=== PATIENT | male | born 1945 | race Caucasian/White ===

== ENCOUNTER → 2017-02-16 | Outpatient (CLI) | payer MEDICARE ==
[~2017-02-16] MED LIST: /TAMS4CA PO; /WARF25TA PO; /WARF5TA OR; ACET65TA OR; FISHCAP PO; FLAG500T PO; FLAXOIL PO; KEFL500C PO; LEVO500T PO; MULTLIQ7 PO; MUPI2OI; NORC5TAB PO; NORCOTAB PO; PERC5TAB8 OR; PERC7.5T8 OR; PERCOCET PO; PRAV40TA OR; PROZAC PO; TERA10CA OR; TERAZOSIN PO; TRAM50TA2 OR; VITAMIN C PO
--- NOTE | 2017-02-16 13:54 | REP ---
LEFT KNEE, FIVE VIEWS: HISTORY: Pain. There is narrowing of the joint spaces. Osteophytes are present on the femur, tibia, and patella. IMPRESSION: Degenerative change as described above. Signed by Jack Wagner MD 02/16/2017 02:05 P
== END ==
LOC: M WUC 13:12
PROVIDERS: ATTEND Nurse Practitioner Adult Health
DX: M25.562 Pain in left knee (principal)

== ENCOUNTER → 2017-04-06 | Outpatient (REF) | payer MEDICARE | LOC: M LAB REF 16:42 | PROVIDERS: ATTEND Nurse Practitioner Adult Health | DX: E21.0 Primary hyperparathyroidism (principal) ==

== ENCOUNTER → 2017-04-18 | Outpatient (REF) | payer MEDICARE | LOC: M LAB REF 16:50 | PROVIDERS: ATTEND Nurse Practitioner Adult Health | DX: R31.29 Other microscopic hematuria (principal) ==

== ENCOUNTER 2017-07-21 18:54 | Emergency (ER) | payer MEDICARE ==
[~2017-07-21] VITALS: Ht 172.7 cm; Wt 86.8 kg
[2017-07-21] MEDS ORDERED: ASPI1TAB PO (19:10)
[2017-07-21] MEDS ORDERED: NAPR500T PO (21:49)
[2017-07-21] MEDS ORDERED: NAPROXEN 250 MG TAB PO ONE (22:00)
[2017-07-21 22:06] VITALS: BP 134/72
--- NOTE | 2017-07-21 22:24 | REP ---
RIGHT SHOULDER, THREE VIEWS: HISTORY: Trauma. There is no acute fracture or dislocation. Osteophytes are present at the acromioclavicular joint. Calcification is present superior to the acromioclavicular joint. This represents ligamentous or tendon calcification. IMPRESSION: Degenerative change as described above. Signed by Jack Wagner MD 07/22/2017 08:23 A
== END 2017-07-21 22:00 | disposition home or self-care (01) ==
LOC: M ED 18:54
DX: S43.51XA Sprain of right acromioclavicular joint, initial encounter (principal); W19.XXXA Unspecified fall, initial encounter; Y92.099 Unspecified place in other non-institutional residence as the place of occurrence of the external cause; Y93.9 Activity, unspecified; Y99.9 Unspecified external cause status; I51.9 Heart disease, unspecified; Z87.891 Personal history of nicotine dependence; Z82.49 Family history of ischemic heart disease and other diseases of the circulatory system; Z79.82 Long term (current) use of aspirin; Z79.899 Other long term (current) drug therapy

== ENCOUNTER → 2018-11-09 | Outpatient (REF) | payer MEDICARE ==
[~2018-11-09] MED LIST changes: +ASPI1TAB PO; +NAPR-49 PO
[2018-11-09 14:09] LABS: INR 1.11; PROTHROMBIN TIME 14.5 SECONDS (12.1-14.4)
== END ==
LOC: M LAB REF 13:17
PROVIDERS: ATTEND Nurse Practitioner Adult Health
DX: I71.4 Abdominal aortic aneurysm, without rupture (principal); Z01.818 Encounter for other preprocedural examination; D69.8 Other specified hemorrhagic conditions

== ENCOUNTER → 2019-01-02 | Outpatient (REF) | payer MEDICARE ==
[~2019-01-02] MED LIST changes: -NAPR-49 PO; +NAPR-50 PO
[2019-01-02 13:30] LABS: INR 1.03; PROTHROMBIN TIME 13.6 SECONDS (12.1-14.4)
[2019-01-02 13:31] LABS: PARTIAL THROMBOPLASTIN TIME 29.7 SECONDS (25.4-37.6)
== END ==
LOC: M LAB REF 12:35
PROVIDERS: ATTEND Nurse Practitioner Adult Health
DX: Z01.818 Encounter for other preprocedural examination (principal)

== ENCOUNTER → 2019-08-09 | Outpatient (CLI) | payer MEDICARE ==
[~2019-08-09] MED LIST changes: -/TAMS4CA PO; -/WARF25TA PO; -/WARF5TA OR; -ASPI1TAB PO; +ASPI81TA26 PO; +COUM1TAB17 OR; +COUM1TAB18 PO; +FLOM0.4C39 PO; +MUPI1OIN2; -MUPI2OI; -NAPR-50 PO; +NAPR-837 PO; +OXYC1TAB23 PO; -PERCOCET PO
[2019-08-09 15:58] LABS: CREATININE FOR GFR 1.31 MG/DL (0.70-1.30); GLOMERULAR FILTRATION RATE 56.8 (>42)
== END ==
LOC: M LAB 14:47
PROVIDERS: ATTEND Surgery Vascular Surgery
DX: I71.4 Abdominal aortic aneurysm, without rupture (principal)

== ENCOUNTER → 2019-12-30 | Outpatient (CLI) | payer MEDICARE ==
[2019-12-30 20:38] LABS: BLOOD UREA NITROGEN 19 MG/DL (7-18); CREATININE FOR GFR 1.11 MG/DL (0.70-1.30); GLOMERULAR FILTRATION RATE > 60.0 (>42)
== END ==
LOC: M WUC 15:52
PROVIDERS: ATTEND Surgery Vascular Surgery
DX: I71.4 Abdominal aortic aneurysm, without rupture (principal)

== ENCOUNTER → 2020-10-02 | Outpatient (REF) | payer MEDICARE ==
[2020-10-02 18:18] LABS: HEPATITIS A ANTIBODY IGM NEGATIVE (NEGATIVE); HEPATITIS B CORE ANTIBODY IGM NEGATIVE (NEGATIVE); HEPATITIS B SURFACE ANTIGEN NEGATIVE (NEGATIVE); HEPATITIS C VIRUS ABY INDEX 0.1 INDEX (<0.8)
== END ==
LOC: M LAB REF 16:14
PROVIDERS: ATTEND Nurse Practitioner Adult Health
DX: R94.5 Abnormal results of liver function studies (principal)

== ENCOUNTER → 2021-02-26 | Outpatient (REF) | payer MEDICARE | LOC: M LAB REF 12:18 | PROVIDERS: ATTEND Nurse Practitioner Adult Health | DX: R30.0 Dysuria (principal) ==

== ENCOUNTER → 2021-03-23 | Outpatient (CLI) | payer MEDICARE ==
--- NOTE | 2021-03-23 13:54 | REP ---
INDICATION: CHRONIC KIDNEY FAILURE, ELEVATED LFT. COMPARISON: 03/22/2016. TECHNIQUE: Real-time sonographic evaluation of the kidneys is performed. FINDINGS: Renal cortical echogenicity pattern is normal bilaterally and contours are smooth. There is no evidence of hydronephrosis, cyst, mass, or calculus in either kidney. The right kidney measures 10.6 x 4.9 x 5.3 cm. Left renal dimensions are 9.7 x 4.9 x 5.6 cm. There is debris in the urinary bladder. Ureteral jets are visualized in the urinary bladder bilaterally with Doppler color evaluation. Incidental note is made of a known abdominal aortic aneurysm containing a stent. IMPRESSION: Negative renal ultrasound. <Electronically signed by Shay Davenport > 03/23/21 [id number]
== END ==
LOC: M RAD 12:54
PROVIDERS: ATTEND Nurse Practitioner Adult Health
DX: N18.31 Chronic kidney disease, stage 3a (principal)

== ENCOUNTER → 2021-06-23 | Outpatient (CLI) | payer MEDICARE ==
[2021-06-23 07:19] LABS: BLOOD UREA NITROGEN 22 MG/DL (7-18); CREATININE FOR GFR 0.98 MG/DL (0.70-1.30); GLOMERULAR FILTRATION RATE > 60.0 (>42)
== END ==
LOC: M LAB 06:18
PROVIDERS: ATTEND Surgery Vascular Surgery
DX: D69.8 Other specified hemorrhagic conditions (principal)

== ENCOUNTER → 2021-08-05 | Outpatient (CLI) | payer MEDICARE ==
[2021-08-05 16:35] LABS: BLOOD UREA NITROGEN 24 MG/DL (7-18); CREATININE FOR GFR 1.09 MG/DL (0.70-1.30); GLOMERULAR FILTRATION RATE > 60.0 (>42)
== END ==
LOC: M LAB 15:31
PROVIDERS: ATTEND Surgery Vascular Surgery
DX: I71.4 Abdominal aortic aneurysm, without rupture (principal)

== ENCOUNTER → 2021-09-30 | Outpatient (REF) | payer MEDICARE ==
[2021-09-30 12:11] LABS: INR 1.1; PROTHROMBIN TIME 14.6 SECONDS (12.7-14.5)
[2021-09-30 12:12] LABS: AMORPHOUS SEDIMENT SMALL (NEGATIVE); APPEARANCE, URINE HAZY (CLEAR); BACTERIA, URINE AUTO NEGATIVE (NEGATIVE); BILIRUBIN, URINE AUTO NEGATIVE (NEGATIVE); BLOOD, URINE BLOOD NEGATIVE (NEGATIVE); COLOR, URINE YELLOW (YELLOW); GLUCOSE, URINE (UA) AUTO NEGATIVE (NEGATIVE); KETONE, URINE AUTO NEGATIVE (NEGATIVE); LEUKOCYTE ESTERASE, URINE AUTO NEGATIVE (NEGATIVE); MUCUS, URINE SMALL (NEGATIVE); NITRITE, URINE AUTO POSITIVE (NEGATIVE); PARTIAL THROMBOPLASTIN TIME 29.5 SECONDS (25.9-37.0); PROTEIN, URINE AUTO NEGATIVE (NEGATIVE); RBC, URINE AUTO 2 /HPF (0-3); SPECIFIC GRAVITY URINE AUTO 1.017 (1.002-1.035); SQUAMOUS EPITHELIAL CELL UR AU 0 /HPF (0-6); UROBILINOGEN, URINE AUTO 0.2 mg/dL (0.0-2.0); WBC, URINE AUTO 2 /HPF (0-3)
== END ==
LOC: M LAB REF 11:45
PROVIDERS: ATTEND Nurse Practitioner Adult Health
DX: Z01.818 Encounter for other preprocedural examination (principal)

== ENCOUNTER → 2022-04-12 | Outpatient (REF) | payer MEDICARE ==
[2022-04-12 18:00] LABS: APPEARANCE, URINE MANUAL TURBID (CLEAR); COLOR, URINE MANUAL BROWN (YELLOW)
[2022-04-12 18:48] LABS: BILIRUBIN, URINE MANUAL OBSCURED (NEGATIVE); BLOOD URINE MANUAL POSITIVE (NEGATIVE); GLUCOSE, URINE (UA) MANUAL OBSCURED mg/dL (NEGATIVE); KETONE, URINE MANUAL OBSCURED mg/dL (NEGATIVE); LEUKOCYTE ESTERASE, URINE MAN POSITIVE (NEGATIVE); NITRITE, URINE MANUAL OBSCURED (NEGATIVE); PROTEIN, URINE MANUAL 3+ mg/dL (NEGATIVE); SPECIFIC GRAVITY,URINE MANUAL 1.019 (1.002-1.035); UROBILINOGEN, URINE MANUAL OBSCURED mg/dl (NORMAL)
[2022-04-12 18:51] LABS: PH,URINE MAN OBSCURED UNITS (5.0 - 7.0)
[2022-04-12 19:26] LABS: BACTERIA, URINE LARGE AMOUNT; MUCUS, URINE LARGE AMOUNT (NEGATIVE); RBC, URINE TNTC /hpf (0-3); TRIPLE PHOSPHATE CRYSTAL,URINE LARGE AMOUNT /hpf
[2022-04-12 19:28] LABS: HYALINE CAST, URINE NONE SEEN /lpf (0-1); SQUAMOUS EPITHELIAL CELL URINE NONE SEEN /hpf (SMALL AMT)
== END ==
LOC: M LAB REF 16:23
PROVIDERS: ATTEND Physician Assistant Medical
DX: R31.9 Hematuria, unspecified (principal); R30.0 Dysuria

== ENCOUNTER → 2022-05-13 | Outpatient (REF) | payer MEDICARE ==
[2022-05-13 14:05] LABS: APPEARANCE, URINE CLOUDY (CLEAR); BACTERIA, URINE AUTO NEGATIVE (NEGATIVE); BILIRUBIN, URINE AUTO NEGATIVE (NEGATIVE); BLOOD, URINE BLOOD 3+ (NEGATIVE); COLOR, URINE AMBER (YELLOW); GLUCOSE, URINE (UA) AUTO NEGATIVE (NEGATIVE); KETONE, URINE AUTO NEGATIVE (NEGATIVE); LEUKOCYTE ESTERASE, URINE AUTO 3+ (NEGATIVE); NITRITE, URINE AUTO NEGATIVE (NEGATIVE); PROTEIN, URINE AUTO 1+ mg/dL (NEGATIVE); RBC, URINE AUTO 177 /HPF (0-3); SPECIFIC GRAVITY URINE AUTO 1.016 (1.002-1.035); SQUAMOUS EPITHELIAL CELL UR AU 0 /HPF (0-6); UROBILINOGEN, URINE AUTO 0.2 mg/dL (0.0-2.0); WBC, URINE AUTO TNTC /HPF (0-3)
== END ==
LOC: M SMT 12:52
PROVIDERS: ATTEND Physician Assistant
DX: R31.9 Hematuria, unspecified (principal); Z87.440 Personal history of urinary (tract) infections

== ENCOUNTER → 2022-06-13 | Outpatient (REF) | payer MEDICARE ==
[2022-06-13 17:45] LABS: APPEARANCE, URINE CLOUDY (CLEAR); BACTERIA, URINE AUTO 2+ (NEGATIVE); BILIRUBIN, URINE AUTO NEGATIVE (NEGATIVE); BLOOD, URINE BLOOD 1+ (NEGATIVE); COLOR, URINE AMBER (YELLOW); GLUCOSE, URINE (UA) AUTO NEGATIVE (NEGATIVE); KETONE, URINE AUTO NEGATIVE (NEGATIVE); LEUKOCYTE ESTERASE, URINE AUTO 3+ (NEGATIVE); MUCUS, URINE SMALL (NEGATIVE); NITRITE, URINE AUTO NEGATIVE (NEGATIVE); PROTEIN, URINE AUTO 1+ mg/dL (NEGATIVE); RBC, URINE AUTO 121 /HPF (0-3); SPECIFIC GRAVITY URINE AUTO 1.015 (1.002-1.035); SQUAMOUS EPITHELIAL CELL UR AU 0 /HPF (0-6); UROBILINOGEN, URINE AUTO 0.2 mg/dL (0.0-2.0); WBC, URINE AUTO TNTC /HPF (0-3)
== END ==
LOC: M SMT 16:41
PROVIDERS: ATTEND Urology
DX: R31.0 Gross hematuria (principal)
CPT/HCPCS: 52000; 81001; 87088; 87186; 88108; G0463

== ENCOUNTER → 2022-06-20 | Outpatient (CLI) | payer MEDICARE ==
[~2022-06-20] MED LIST changes: +ISOVUE-370 76% 100ML VIAL As Ordered ONE
[2022-06-20 13:13] LABS: BLOOD UREA NITROGEN 23 MG/DL (7-18); CALCIUM LEVEL 9.7 MG/DL (8.8-10.2); CARBON DIOXIDE LEVEL 26 MEQ/L (21-32); CHLORIDE LEVEL 115 MEQ/L (98-107); CREATININE FOR GFR 1.09 MG/DL (0.70-1.30); GLOMERULAR FILTRATION RATE > 60.0 (>42); GLUCOSE, FASTING 91 MG/DL (70-100); SODIUM LEVEL 144 MEQ/L (136-145)
== END ==
LOC: M RAD 11:05
PROVIDERS: ATTEND Urology
DX: R31.0 Gross hematuria (principal); I71.9 Aortic aneurysm of unspecified site, without rupture; K76.9 Liver disease, unspecified
CPT/HCPCS: 36415; 74178; 80048; Q9967

== ENCOUNTER → 2022-09-13 | Outpatient (CLI) | payer MEDICARE | LOC: M RAD 16:01 | PROVIDERS: ATTEND Surgery Vascular Surgery | DX: I71.40 Abdominal aortic aneurysm, without rupture, unspecified (principal) | CPT/HCPCS: 74175; Q9967 ==

== ENCOUNTER → 2023-03-07 | Outpatient (CLI) | payer MEDICARE ==
[~2023-03-07] MED LIST changes: -ISOVUE-370 76% 100ML VIAL As Ordered ONE
[2023-03-07 10:41] LABS: BLOOD UREA NITROGEN 24 MG/DL (9-23); GLOMERULAR FILTRATION RATE > 60.0 (>42)
== END ==
LOC: M LAB 09:30
PROVIDERS: ATTEND Nurse Practitioner Family
DX: C44.219 Basal cell carcinoma of skin of left ear and external auricular canal (principal)

== ENCOUNTER → 2023-03-27 | Outpatient (CLI) | payer MEDICARE ==
[~2023-03-27] MED LIST changes: +ISOVUE-370 76% 100ML VIAL As Ordered ONE
== END ==
LOC: M RAD 11:17
PROVIDERS: ATTEND Otolaryngology
DX: C44.219 Basal cell carcinoma of skin of left ear and external auricular canal (principal)
CPT/HCPCS: 70487; 70491; Q9967

== ENCOUNTER → 2023-05-23 | Outpatient (CLI) | payer MEDICARE ==
[~2023-05-23] MED LIST changes: +AMLO1TAB25 PO; +ASPI-655 PO; +BUPR-71 PO; +FINA5TAB2 PO; +FLUO40CA PO; -ISOVUE-370 76% 100ML VIAL As Ordered ONE; +METO25TA4 PO; +OMEG10002 PO; +OMEP-173 PO; +OXYB15TA14 PO; +SIMV40TA20 PO; +VITMTA PO
[2023-05-23 15:32] LABS: APPEARANCE, URINE MANUAL TURBID (CLEAR); COLOR, URINE MANUAL RED (YELLOW)
[2023-05-23 15:33] LABS: BILIRUBIN, URINE MANUAL NEGATIVE (NEGATIVE); BLOOD URINE MANUAL POSITIVE (NEGATIVE); GLUCOSE, URINE (UA) MANUAL NEGATIVE (NEGATIVE); KETONE, URINE MANUAL NEGATIVE (NEGATIVE); NITRITE, URINE MANUAL NEGATIVE (NEGATIVE); PROTEIN, URINE MANUAL 2+ mg/dL (NEGATIVE); SPECIFIC GRAVITY,URINE MANUAL 1.015 (1.002-1.035); UROBILINOGEN, URINE MANUAL NORMAL (NORMAL)
[2023-05-23 15:34] LABS: LEUKOCYTE ESTERASE, URINE MAN NEGATIVE (NEGATIVE)
[2023-05-23 15:37] LABS: BACTERIA, URINE NONE SEEN; HYALINE CAST, URINE NONE SEEN /lpf (0-1); RBC, URINE TNTC /hpf (0-3); SQUAMOUS EPITHELIAL CELL URINE NONE SEEN /hpf (SMALL AMT)
== END ==
LOC: M LAB 14:31
PROVIDERS: ATTEND Urology
DX: R31.0 Gross hematuria (principal)

== ENCOUNTER 2023-05-25 12:57 | Inpatient (IN) | payer MEDICARE ==
[~2023-05-25] VITALS: Ht 177.8 cm; Wt 63.6 kg
[~2023-05-25 12:57] MED LIST changes: -AMLO1TAB25 PO; -ASPI-655 PO; -BUPR-71 PO; -FINA5TAB2 PO; -FLUO40CA PO; -METO25TA4 PO; -OMEG10002 PO; -OMEP-173 PO; -OXYB15TA14 PO; -SIMV40TA20 PO; -VITMTA PO
[2023-05-25 14:25] LABS: VENOUS BASE EXCESS -3.7 (-2.0-2.0); VENOUS HCO3 21.4 MMOL/L (23.0-27.0); VENOUS O2 SATURATION 38.9 % (60.0-80.0); VENOUS PARTIAL PRESSURE O2 22.9 mmHg (30.0-50.0); VENOUS PH 7.358 UNITS (7.330-7.430); VENOUS STANDARD HCO3 20.5 MMOL/L; VENOUS TOTAL CO2 22.6 MMOL/L (24.0-28.0)
[2023-05-25 14:35] LABS: BASO % 0.7 % (0.0-1.0); EOS # 0.1 10^3/uL (0.0-0.5); EOS % 1.4 % (0.0-3.0); HEMOGLOBIN 8.4 g/dl (13.5-17.5); MEAN CORPUSCULAR HEMOGLOBIN 29.8 pg (27.0-33.0); MEAN CORPUSCULAR HGB CONC 31.1 g/dl (32.0-36.5); MEAN CORPUSCULAR VOLUME 95.7 fl (80.0-96.0); MONO # 0.5 10^3/uL (0.0-0.8); MONO % 11.1 % (2.0-8.0); NEUTROPHILS # 2.8 10^3/uL (1.5-8.5); NEUTROPHILS % 64.3 % (36.0-66.0); PLATELET COUNT, AUTOMATED 292 10^3/uL (150-450); RED BLOOD COUNT 2.82 10^6/uL (4.30-6.10); WHITE BLOOD COUNT 4.4 10^3/uL (4.0-10.0)
[2023-05-25 14:53] LABS: ALBUMIN 2.7 G/DL (3.2-5.2); BILIRUBIN,DIRECT 0.2 MG/DL (<0.4); BILIRUBIN,TOTAL 0.5 MG/DL (0.3-1.2); CALCIUM LEVEL 10.1 MG/DL (8.3-10.6); CREATININE FOR GFR 1.37 MG/DL (0.70-1.30); GLOMERULAR FILTRATION RATE 53.5 (>42); POTASSIUM SERUM 5.3 MMOL/L (3.5-5.1); TOTAL PROTEIN 6.3 G/DL (5.7-8.2)
[2023-05-25 14:54] LABS: THYROID STIMULATING HORMONE 2.545 uIU/ML (0.55-4.78)
[2023-05-25 14:56] LABS: INR 1.04; PROTHROMBIN TIME 13.8 SECONDS (12.5-14.5)
[2023-05-25] MEDS ORDERED: LIDOCAINE 2% 5ML JELLY UROJET TOP ONE (17:00)
[2023-05-25] MEDS: ACETAMINOPHEN TAB 650MG DOSE (2X325MG) PO PRN ×2 (17:57→22:53)
[2023-05-25] MEDS: cefTRIAXone SOD 1 GM in D5W MINI-BAG PLUS 50 ML IV SCH (17:57)
[2023-05-25 21:00] VITALS: BP 118/59; TEMP 97.7; TEMP 97.9; O2SAT 96
[2023-05-25] MEDS ORDERED: SIMV40TA20 PO (22:21)
[2023-05-25] MEDS ORDERED: BUPR-71 PO (22:21)
[2023-05-25] MEDS ORDERED: OXYB15TA14 PO (22:21)
[2023-05-25] MEDS ORDERED: OMEG10002 PO (22:21)
[2023-05-25] MEDS ORDERED: OMEP-173 PO (22:21)
[2023-05-25] MEDS ORDERED: FINA5TAB2 PO (22:21)
[2023-05-25] MEDS ORDERED: FLUO40CA PO (22:21)
[2023-05-25] MEDS ORDERED: AMLO1TAB25 PO (22:21)
[2023-05-25] MEDS ORDERED: METO25TA4 PO (22:21)
[2023-05-25] MEDS ORDERED: VITMTA PO (22:21)
[2023-05-25] MEDS ORDERED: ASPI-655 PO (22:21)
[2023-05-25] MEDS ORDERED: HOME MED LIST COMPLETE! XX SCH (22:25)
[2023-05-25] MEDS: TAMSULOSIN 0.4 MG CAP PO SCH (22:53)
[2023-05-26] VITALS (8 sets, daily range): BP systolic 90–114; BP diastolic 50–74; TEMP 97.2–99.1; O2SAT 94–97
[2023-05-26 01:01] LABS: HEMATOCRIT 23.4 % (42.0-52.0); HEMOGLOBIN 7.3 g/dl (13.5-17.5)
[2023-05-26] MEDS ORDERED: D5W/0.45% SODIUM CHLORIDE 1,000 ML IV SCH ×2 (06:00→15:45)
[2023-05-26 06:19] LABS: BASO % 0.6 % (0.0-1.0); EOS # 0.1 10^3/uL (0.0-0.5); EOS % 1.1 % (0.0-3.0); HEMATOCRIT 27.2 % (42.0-52.0); HEMOGLOBIN 8.7 g/dl (13.5-17.5); LYMPH % 21.8 % (24.0-44.0); MEAN CORPUSCULAR HEMOGLOBIN 30.2 pg (27.0-33.0); MEAN CORPUSCULAR VOLUME 94.4 fl (80.0-96.0); MONO # 0.7 10^3/uL (0.0-0.8); MONO % 14.1 % (2.0-8.0); NEUTROPHILS # 2.9 10^3/uL (1.5-8.5); PLATELET COUNT, AUTOMATED 223 10^3/uL (150-450); RED BLOOD COUNT 2.88 10^6/uL (4.30-6.10); WHITE BLOOD COUNT 4.7 10^3/uL (4.0-10.0)
[2023-05-26 06:42] LABS: BLOOD UREA NITROGEN 32 MG/DL (9-23); CALCIUM LEVEL 8.3 MG/DL (8.3-10.6); CARBON DIOXIDE LEVEL 23 MMOL/L (20-31); CHLORIDE LEVEL 112 MMOL/L (98-107); GLOMERULAR FILTRATION RATE > 60.0 (>42); GLUCOSE, FASTING 104 MG/DL (74-106); POTASSIUM SERUM 4.7 MMOL/L (3.5-5.1); SODIUM LEVEL 137 MMOL/L (136-145)
[2023-05-26 12:02] LABS: HEMATOCRIT 27.7 % (42.0-52.0)
[2023-05-26] MEDS ORDERED: NS 1,000 ML IV SCH (14:30)
[2023-05-26] MEDS: cefTRIAXone SOD 1 GM in D5W MINI-BAG PLUS 50 ML IV SCH (18:07)
[2023-05-26 18:26] LABS: HEMATOCRIT 26.7 % (42.0-52.0); HEMOGLOBIN 8.6 g/dl (13.5-17.5)
[2023-05-26] MEDS: ACETAMINOPHEN TAB 650MG DOSE (2X325MG) PO PRN (20:00)
[2023-05-26] MEDS: TAMSULOSIN 0.4 MG CAP PO SCH (20:42)
[2023-05-27 00:12] LABS: HEMOGLOBIN 8.3 g/dl (13.5-17.5)
[2023-05-27 03:23] VITALS: BP 110/56
[2023-05-27 05:45] VITALS: BP 111/60; TEMP 97.9; O2SAT 96
[2023-05-27 06:12] LABS: BASO % 0.7 % (0.0-1.0); EOS # 0.1 10^3/uL (0.0-0.5); EOS % 1.3 % (0.0-3.0); HEMATOCRIT 27.2 % (42.0-52.0); HEMOGLOBIN 8.9 g/dl (13.5-17.5); LYMPH # 1.1 10^3/uL (1.5-5.0); LYMPH % 20.2 % (24.0-44.0); MEAN CORPUSCULAR HEMOGLOBIN 30.8 pg (27.0-33.0); MEAN CORPUSCULAR HGB CONC 32.7 g/dl (32.0-36.5); MEAN CORPUSCULAR VOLUME 94.1 fl (80.0-96.0); MONO # 0.7 10^3/uL (0.0-0.8); MONO % 13.1 % (2.0-8.0); NEUTROPHILS # 3.5 10^3/uL (1.5-8.5); NEUTROPHILS % 64.3 % (36.0-66.0); PLATELET COUNT, AUTOMATED 206 10^3/uL (150-450); RED BLOOD COUNT 2.89 10^6/uL (4.30-6.10); WHITE BLOOD COUNT 5.4 10^3/uL (4.0-10.0)
[2023-05-27 06:28] LABS: BLOOD UREA NITROGEN 16 MG/DL (9-23); CALCIUM LEVEL 9.2 MG/DL (8.3-10.6); CARBON DIOXIDE LEVEL 23 MMOL/L (20-31); CHLORIDE LEVEL 107 MMOL/L (98-107); CREATININE FOR GFR 0.88 MG/DL (0.70-1.30); GLOMERULAR FILTRATION RATE > 60.0 (>42); GLUCOSE, FASTING 101 MG/DL (74-106); POTASSIUM SERUM 4.1 MMOL/L (3.5-5.1); SODIUM LEVEL 137 MMOL/L (136-145)
[2023-05-27] MEDS: ACETAMINOPHEN TAB 650MG DOSE (2X325MG) PO PRN ×3 (06:43→20:14)
[2023-05-27 08:00] VITALS: BP 118/62; TEMP 98; O2SAT 97
[2023-05-27] MEDS ORDERED: D5W/0.45% SODIUM CHLORIDE 1,000 ML IV SCH (08:35)
[2023-05-27 11:56] LABS: HEMATOCRIT 26.8 % (42.0-52.0); HEMOGLOBIN 8.7 g/dl (13.5-17.5)
[2023-05-27 14:00] VITALS: BP 117/64; TEMP 98.6; O2SAT 97
[2023-05-27] MEDS: MOM 30ML SUSPENSION UDC PO SCH ×2 (17:26→20:15)
[2023-05-27] MEDS: cefTRIAXone SOD 1 GM in D5W MINI-BAG PLUS 50 ML IV SCH (17:26)
[2023-05-27 18:34] LABS: HEMATOCRIT 26.9 % (42.0-52.0); HEMOGLOBIN 8.7 g/dl (13.5-17.5)
[2023-05-27] MEDS: TAMSULOSIN 0.4 MG CAP PO SCH (20:14)
[2023-05-27 20:53] VITALS: BP 114/64; TEMP 98.7; O2SAT 98
[2023-05-27] MEDS: SIMVASTATIN 40 MG TAB PO SCH (22:11)
[2023-05-27] MEDS: OMEGA-3 1000MG CAPSULE PO SCH (22:11)
[2023-05-27] MEDS: FLUoxetine 20MG CAP PO SCH (22:11)
[2023-05-27] MEDS: METOPROLOL TART 25 MG TABLET PO SCH (22:11)
[2023-05-27] MEDS: FINASTERIDE 5MG TAB PO SCH (22:12)
[2023-05-28] VITALS (9 sets, daily range): BP systolic 100–118; BP diastolic 60–76; TEMP 97.3–98.6; O2SAT 90–97
[2023-05-28 00:09] LABS: HEMATOCRIT 28.6 % (42.0-52.0); HEMOGLOBIN 9.1 g/dl (13.5-17.5)
[2023-05-28] MEDS: MOM 30ML SUSPENSION UDC PO SCH (00:33)
[2023-05-28] MEDS ORDERED: MOM 30ML SUSPENSION UDC PO PRN ×2 (03:40→15:55)
[2023-05-28] MEDS: ACETAMINOPHEN TAB 650MG DOSE (2X325MG) PO PRN ×3 (05:42→23:19)
[2023-05-28 06:05] LABS: BASO % 0.3 % (0.0-1.0); EOS # 0.1 10^3/uL (0.0-0.5); EOS % 1.3 % (0.0-3.0); HEMATOCRIT 30.5 % (42.0-52.0); HEMOGLOBIN 9.6 g/dl (13.5-17.5); LYMPH # 1.3 10^3/uL (1.5-5.0); LYMPH % 20.9 % (24.0-44.0); MEAN CORPUSCULAR HGB CONC 31.5 g/dl (32.0-36.5); MEAN CORPUSCULAR VOLUME 95.3 fl (80.0-96.0); MONO # 0.7 10^3/uL (0.0-0.8); MONO % 10.8 % (2.0-8.0); NEUTROPHILS # 4.1 10^3/uL (1.5-8.5); NEUTROPHILS % 66.2 % (36.0-66.0); PLATELET COUNT, AUTOMATED 238 10^3/uL (150-450); WHITE BLOOD COUNT 6.2 10^3/uL (4.0-10.0)
[2023-05-28 06:09] LABS: BLOOD UREA NITROGEN 17 MG/DL (9-23); CALCIUM LEVEL 9.3 MG/DL (8.3-10.6); CARBON DIOXIDE LEVEL 27 MMOL/L (20-31); CHLORIDE LEVEL 106 MMOL/L (98-107); CREATININE FOR GFR 0.86 MG/DL (0.70-1.30); GLOMERULAR FILTRATION RATE > 60.0 (>42); GLUCOSE, FASTING 113 MG/DL (74-106); POTASSIUM SERUM 4.4 MMOL/L (3.5-5.1); SODIUM LEVEL 139 MMOL/L (136-145)
[2023-05-28] MEDS ORDERED: oxyBUTYnin *DITROPAN XL* 5 MG TABCR PO SCH (09:00)
[2023-05-28] MEDS ORDERED: fentaNYL 100 MCG/2 ML INJECTION As Ordered ONE (09:48)
[2023-05-28] MEDS ORDERED: MIDAZOLAM INJ 2MG/2ML VIAL As Ordered ONE (09:49)
[2023-05-28] MEDS ORDERED: propofoL 200 MG/20 ML VIAL As Ordered ONE (09:50)
[2023-05-28] MEDS ORDERED: LIDOCAINE 2% 100MG/5ML SDV (FOR ANES.) As Ordered ONE (09:51)
[2023-05-28] MEDS ORDERED: ONDANSETRON 4MG 2ML VIAL As Ordered ONE (09:53)
[2023-05-28] MEDS ORDERED: METOCLOPRAMIDE INJ 10MG/2ML VIAL As Ordered ONE (09:54)
[2023-05-28] MEDS ORDERED: ePHEDrine SULFATE 25 MG/5 ML(5MG/ML) SYRINGE As Ordered ONE (10:18)
[2023-05-28] MEDS ORDERED: ONDANSETRON 4MG 2ML VIAL IV PRN (10:50)
[2023-05-28] MEDS ORDERED: fentaNYL 100 MCG/2 ML INJECTION IV PRN (10:50)
[2023-05-28] MEDS ORDERED: oxyCODONE 5MG TAB PO PRN (10:50)
[2023-05-28] MEDS ORDERED: LR 1,000 ML IV SCH (10:50)
[2023-05-28] MEDS: METOPROLOL TART 25 MG TABLET PO SCH ×2 (11:49→20:32)
[2023-05-28] MEDS ORDERED: CIPR-249 PO (11:54)
[2023-05-28] MEDS ORDERED: BACI1CAP PO (11:54)
[2023-05-28 11:58] LABS: HEMATOCRIT 26.3 % (42.0-52.0); HEMOGLOBIN 8.4 g/dl (13.5-17.5)
[2023-05-28] MEDS: OMEPRAZOLE 20MG CAP PO SCH (11:58)
[2023-05-28] MEDS: FINASTERIDE 5MG TAB PO SCH ×2 (11:58→20:32)
[2023-05-28] MEDS: buPROPion **SR TABLET** (ZYBAN) 150MG PO SCH (11:58)
[2023-05-28] MEDS: MULTIVITAMINS/MINERALS THERAP 1 TAB PO SCH (11:59)
[2023-05-28] MEDS: FLUoxetine 20MG CAP PO SCH ×2 (11:59→20:31)
[2023-05-28] MEDS ORDERED: FLOM0.4C39 PO ×2 (13:01→15:56)
[2023-05-28] MEDS ORDERED: NS 1,000 ML IV ONE ×2 (13:05→15:50)
[2023-05-28] MEDS ORDERED: SENOKOT S TAB PO PRN (15:55)
[2023-05-28] MEDS ORDERED: FLEET ENEMA PR PRN (15:55)
[2023-05-28] MEDS ORDERED: BISACODYL 5MG TAB PO PRN (15:55)
[2023-05-28] MEDS: cefTRIAXone SOD 1 GM in D5W MINI-BAG PLUS 50 ML IV SCH (17:30)
[2023-05-28] MEDS: OMEGA-3 1000MG CAPSULE PO SCH (20:31)
[2023-05-28] MEDS: SIMVASTATIN 40 MG TAB PO SCH (20:32)
[2023-05-28] MEDS ORDERED: TAMSULOSIN 0.4 MG CAP PO SCH (21:00)
[2023-05-29 01:59] VITALS: BP 121/70; TEMP 98.8; O2SAT 94
[2023-05-29] MEDS ORDERED: LIDOCAINE 2% 5ML JELLY UROJET TOP ONE (02:00)
[2023-05-29] MEDS: ACETAMINOPHEN TAB 650MG DOSE (2X325MG) PO PRN ×2 (04:51→08:54)
[2023-05-29 04:58] VITALS: BP 122/71; TEMP 98.1; O2SAT 96
[2023-05-29 06:40] LABS: BLOOD UREA NITROGEN 14 MG/DL (9-23); CALCIUM LEVEL 7.9 MG/DL (8.3-10.6); CARBON DIOXIDE LEVEL 24 MMOL/L (20-31); CHLORIDE LEVEL 109 MMOL/L (98-107); CREATININE FOR GFR 0.84 MG/DL (0.70-1.30); GLOMERULAR FILTRATION RATE > 60.0 (>42); GLUCOSE, FASTING 102 MG/DL (74-106); POTASSIUM SERUM 4.3 MMOL/L (3.5-5.1); SODIUM LEVEL 138 MMOL/L (136-145)
[2023-05-29 08:52] VITALS: BP 107/53
[2023-05-29] MEDS: METOPROLOL TART 25 MG TABLET PO SCH (08:52)
[2023-05-29] MEDS: FLUoxetine 20MG CAP PO SCH (08:53)
[2023-05-29] MEDS: buPROPion **SR TABLET** (ZYBAN) 150MG PO SCH (08:53)
[2023-05-29] MEDS: MULTIVITAMINS/MINERALS THERAP 1 TAB PO SCH (08:53)
[2023-05-29] MEDS: OMEPRAZOLE 20MG CAP PO SCH (08:53)
[2023-05-29 09:00] VITALS: BP 117/71; TEMP 98.8; O2SAT 95
== END 2023-05-29 14:38 | disposition home health service (06) | DRG 663 ==
LOC: M ED 12:57 → EEVIPCON 17:18 → M ED INP 17:18 → M MSPAV 20:49
PROVIDERS: ADMIT General Practice; ATTEND General Practice
PROC: 30233N1 Transfusion of Nonautologous Red Blood Cells into Peripheral Vein, Percutaneous Approach (ICD-10-PCS; 2023-05-26)
PROC: 0TCB8ZZ Extirpation of Matter from Bladder, Via Natural or Artificial Opening Endoscopic (ICD-10-PCS; 2023-05-28)
PROC: 0W3R8ZZ Control Bleeding in Genitourinary Tract, Via Natural or Artificial Opening Endoscopic (ICD-10-PCS; principal; 2023-05-28 08:51)
DX: N30.91 Cystitis, unspecified with hematuria (principal); D62 Acute posthemorrhagic anemia; I10 Essential (primary) hypertension; E78.00 Pure hypercholesterolemia, unspecified; E21.3 Hyperparathyroidism, unspecified; Z96.649 Presence of unspecified artificial hip joint; N31.2 Flaccid neuropathic bladder, not elsewhere classified; N40.0 Benign prostatic hyperplasia without lower urinary tract symptoms; R33.9 Retention of urine, unspecified; R31.0 Gross hematuria; Z85.828 Personal history of other malignant neoplasm of skin; N28.1 Cyst of kidney, acquired; Z79.899 Other long term (current) drug therapy

== ENCOUNTER 2023-06-08 11:00 | Emergency (ER) | payer MEDICARE ==
[~2023-06-08] VITALS: Ht 177.8 cm; Wt 58.6 kg
[~2023-06-08 11:00] MED LIST changes: +AMLO1TAB25 PO; +ASPI-655 PO; +BACI1CAP PO; +BUPR-71 PO; +CIPR-249 PO; +FINA5TAB2 PO; +FLUO40CA PO; +METO25TA4 PO; +OMEG10002 PO; +OMEP-173 PO; +OXYB15TA14 PO; +SIMV40TA20 PO; +VITMTA PO
[2023-06-08 12:03] LABS: BASO % 0.8 % (0.0-1.0); EOS # 0.1 10^3/uL (0.0-0.5); EOS % 2.3 % (0.0-3.0); HEMATOCRIT 29.9 % (42.0-52.0); HEMOGLOBIN 9.2 g/dl (13.5-17.5); LYMPH # 1.4 10^3/uL (1.5-5.0); LYMPH % 27.9 % (24.0-44.0); MEAN CORPUSCULAR HEMOGLOBIN 30.6 pg (27.0-33.0); MEAN CORPUSCULAR HGB CONC 30.8 g/dl (32.0-36.5); MEAN CORPUSCULAR VOLUME 99.3 fl (80.0-96.0); MONO # 0.5 10^3/uL (0.0-0.8); MONO % 10.4 % (2.0-8.0); NEUTROPHILS % 58.4 % (36.0-66.0); PLATELET COUNT, AUTOMATED 277 10^3/uL (150-450); RED BLOOD COUNT 3.01 10^6/uL (4.30-6.10); WHITE BLOOD COUNT 5.1 10^3/uL (4.0-10.0)
[2023-06-08] MEDS ORDERED: NS 500 ML IV ONE (12:05)
[2023-06-08 12:28] LABS: ALBUMIN 2.5 G/DL (3.2-5.2); ALKALINE PHOSPHATASE 133 U/L (46-116); ALT/SGPT 47 U/L (7.0-40); AST/SGOT 83 U/L (<34); BILIRUBIN,TOTAL 0.3 MG/DL (0.3-1.2); BLOOD UREA NITROGEN 34 MG/DL (9-23); CALCIUM LEVEL 8.9 MG/DL (8.3-10.6); CARBON DIOXIDE LEVEL 23 MMOL/L (20-31); CHLORIDE LEVEL 110 MMOL/L (98-107); CREATININE FOR GFR 1.14 MG/DL (0.70-1.30); GLOMERULAR FILTRATION RATE > 60.0 (>42); GLUCOSE, FASTING 83 MG/DL (74-106); POTASSIUM SERUM 5.1 MMOL/L (3.5-5.1); SODIUM LEVEL 141 MMOL/L (136-145); TOTAL PROTEIN 6.1 G/DL (5.7-8.2)
[2023-06-08 14:00] VITALS: BP 124/69
[2023-06-08 14:15] VITALS: TEMP 98; O2SAT 99
== END 2023-06-08 14:40 | disposition home or self-care (01) ==
LOC: M ED 11:00 → EDBD 11:00 → M ED 14:40
DX: H93.12 Tinnitus, left ear (principal); R00.1 Bradycardia, unspecified; I10 Essential (primary) hypertension; E78.5 Hyperlipidemia, unspecified; F32.A Depression, unspecified; G47.33 Obstructive sleep apnea (adult) (pediatric); Z79.810 Long term (current) use of selective estrogen receptor modulators (SERMs); Z79.899 Other long term (current) drug therapy